=== PATIENT | male | born 1985 | race Caucasian/White ===

== ENCOUNTER → 2021-10-31 09:31 | Outpatient (BNVA) | payer OTHER, SELFPAY | PROVIDERS: Family Provider Registered Nurse; Visit Provider Nurse Practitioner Family | DX: Z20.822 Contact with and (suspected) exposure to COVID-19 (principal) | CPT/HCPCS: 87635 ==

== ENCOUNTER 2025-10-09 17:56 | Emergency (ER) | payer OTHER, SELFPAY ==
[2025-10-09 18:00] VITALS: BP 114/82; PULSE 134; RESP 18; TEMP 37.1; O2SAT 97; BMI 31.1
--- NOTE | 2025-10-09 18:04 | ECG_ITS ---
[employer] Test Date: 2025-10-09 Pat Name: Jackson Gillespie Department: Room: Gender: Male Facilities Director: : 1985 Requested By: Camron Egan Order Number: [id number] Manuel MD: ISAC ARENAS Measurements Intervals [place] Rate: 139 P: 35 KS: 145 QRS: -18 QRSD: 75 T: 46 QT: 288 QTc: 439 Interpretive Statements SINUS TACHYCARDIA POSSIBLE ANTERIOR MYOCARDIAL INFARCTION , PROBABLY OLD [30 ms Q WAVE IN V3/V4, OR R < 0.2 mV IN V4] ABNORMAL RHYTHM ECG INTERPRETATION BASED ON A DEFAULT AGE OF 40 YEARS No previous ECG available for comparison Electronically Signed On 10-09-2025 23:17:15 CARAMEL MAKER by ISAC ARENAS [id number]
--- OUTSIDE RECORDS SUMMARY | 2025-10-09 18:06 | XMS_ITS | Encounter Summary ---
Author Organization [facility] Address [address] [place] [address] Care Team Providers Care Lead Slot Technician Name Role Phone Fam Forrest DO Primary Care Provider [phone] Encounter Details Date Type Department Care Team (Late st Contact Info) Description 10/04/2025 External Device Data ST[place] ABSTRACTION Provider, Abstract NO ADDRESS ON FILE Social History Tobacco Use Types Packs/Day Years Used Date Smoking Tobacco: Never Smokeless Tobacco: Never Alcohol Use Standard Drinks/Week Comments No 0 (1 standard drink = 0.6 oz pur e alcohol) Feeling Safe Answer Date Recorded Are you in a relationship wi th someone who hurts you emotionally and/or physically? 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 Gender Identity Not on file Sexual Orientation Not on file documented as of this encounter Plan of Treatment Upcoming Encounters Date Type Department Care Team (Late st Contact Info) Description 03/10/2026 10:15 AM CDT Office Visit [facility] [address] [place] [address] Quinton Terry MD [address] [place] [address] documented as of this encounter Visit Diagnoses Not on filedocumented in this encounter Care Teams Lead Slot Technician Relationship Specialty Start Date End Date Fam Forrest DO [address] [place] [address] PCP - General Family Practice 10/30/23 documented as of this encounter
--- OUTSIDE RECORDS SUMMARY | 2025-10-09 18:06 | XMS_ITS | Encounter Summary ---
Author Organization [facility] Address [address] [place] [address] Care Team Providers Care Software Engineering Supervisor Name Role Phone Tali Bazzi DO Primary Care Provider [phone] Encounter Details Date Type Department Care Team (Latest Contact Info) Description 05/30/2005 Outpatient Historical [facility] Medicine [address] [phone] Jamaal Diaz, PIPE FITTER SUPERVISOR [address] [place], [place] [id number] MED EXAM NEC-ADMIN PURP (Primary Dx) Social History Tobacco Use Types Packs/Day Years Used Date Smoking Tobacco: Never Assessed Sex and Gender Information Value Date Recorded Sex Assigned at Not on file 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
--- OUTSIDE RECORDS SUMMARY | 2025-10-09 18:06 | XMS_ITS | Clinical Summary ---
Author Organization [facility] [address] [address] [address] Care Team Providers Care Double End Sewer Name Role Phone MichelleFam kendall Primary Care Provider [phone] Allergies No known active allergies Medications fluticasone propionate (FLONASE) 50 mcg/spray [place], Suspension nasal inhalerIndication s:Acute non-recurrent pansinusitis,Othe r non-recurrent acute nonsuppurative otitis media of left ear Administer 2 Sprays in each nostril daily. 16 Gram 0 019 Active Blood-Glucose MeterIndications: Type 2 diabetes mellitus without complication, without long-term current use of insulin ([facility]) Test blood sugars daily and prn 1 Each 1 022 Active blood sugar diagnostic StripIndications: Type 2 diabetes mellitus without complication, without long-term current use of insulin ([facility]) Test blood sugars daily and prn 100 Strip 5 022 Active lisinopriL (PRINIVIL) 10 mg tabletIndications :Type 2 diabetes mellitus without complication, without long-term current use of insulin ([facility]),Essenti al (primary) hypertension Take 1 Tablet (10 mg) by mouth daily. 90 Tablet 3 025 Active aspirin (ECOTRIN EC) 81 mg Tablet, Delayed Release (E.C.)Indications :Abnormal cardiovascular stress test Take 1 Tablet (81 mg) by mouth daily. 025 Active metoprolol succinate (TOPROL XL) 25 mg Extended Release 24 hour tablet Take 1 Tablet (25 mg) by mouth daily. 90 Tablet 3 025 Active Mounjaro 10 mg/0.5 mL Pen InjectorIndicatio ns:Type 2 diabetes mellitus without complication, without long-term current use of insulin ([facility]) INJECT 0.5 ML SUBCUTANEOUSLY EVERY SEVEN DAYS 2 mL 5 025 Active ticagrelor (BRILINTA) 90 mg Tablet TAKE ONE TABLET BY MOUTH BY MOUTH TWICE DAILY 180 Tablet 1 025 Active ticagrelor (BRILINTA) 90 mg Tablet Take 1 Tablet (90 mg) by mouth 2 times daily. 180 Tablet 1 025 2024 Discontinued Active Problems Problem Noted Date Diagnosed Date Mixed hyperlipidemia 03/04/2025 ASHD (arteriosclerotic heart disease) 03/04/2025 Chest pain 02/18/2025 Abnormal stress test 02/18/2025 Hypertension, essential 02/04/2025 Other forms of angina pectoris 02/04/2025 Uncontrolled type 2 diabetes mellitus with hyperglycemia, without long-term current use of insulin 12/16/2024 Elevated blood pressure read ing without diagnosis of hypertension 12/16/2024 Intermittent palpitations 12/16/2024 Chest pain in adult 12/16/2024 Dyspnea 12/16/2024 Benign hypertension 12/16/2024 Resolved Problems Problem Noted Date Diagnosed Date Resolved Date Diabetes mellitus type II, uncontrolled 11/22/2013 05/04/2014 Encounters Date Type Department Care Team Description 10/04/2025 External Device Data STL ABSTRACTION Provider, Abstract 09/22/2025 [facility] [address] [facility] [address] [place] [address] Quinton Terry MD 09/21/2025 Orders Only [address] [address] Fam Forrest, Type 2 diabetes mellitus without complication, without long-term current use of insulin ([facility]) 08/30/2025 External Device Data STL ABSTRACTION Provider, Abstract 08/30/2025 External Device Data STL ABSTRACTION Provider, Abstract 08/10/2025 Orders Only [address] [address] Fam Forrest, Type 2 diabetes mellitus without complication, without long-term current use of insulin 08/08/2025 Medication Prior Auth Encounter [facility] [address] [phone] Porsha Arshad FNP 08/03/2025 External Device Data STL ABSTRACTION Provider, Abstract 08/01/2025 Medication Prior Auth Encounter [facility] [address] [phone] Porsha Arshad FNP 07/22/2025 Refill [facility] [address] [phone] Porsha Arshad, RJ Type 2 diabetes mellitus without complication, without long-term current use of insulin ([facility]) 07/19/2025 External Device Data STL ABSTRACTION Provider, Abstract from Last 3 Months Immunizations Immunization Administration Dates Next Due (ADACEL/BOOSTRIX)(10 YR UP) TDAP VACCINE, 0.5ML, IM 07/29/2017 (M-M-R II/PRIORIX)(12 MO UP) MEASLES, MUMPS AND RUBELLA VIRUS VACCINE, 0.5 ML IM/SUBCUT 03/30/1992 (TDVAX)(7 YRS UP) TETANUS AN D DIPHTHERIA TOXOIDS, ADSORBED (2 LF OF TETANUS TOXOID AND 2 LF OF DIPHTHERIA TOXOID), 0.5ML (PF), IM 07/15/2002 Dt Dtp Dtap Vaccine 03/30/1992,10/13/1991 Hepatitis B Vaccine 07/24/1998 IPV/OPV 03/30/1992 Family History Medical History Relation Name Comments Hypertension Father Has also had so me kidney disease Diabetes Mother Relation Name Status Comments Father Mother Social History Tobacco Use Types Packs/Day Years Used Date Smoking Tobacco: Never Smokeless Tobacco: Never Tobacco Cessation:Counseling Given: Not Answered Alcohol Use Standard Drinks/Week Comments No 0 (1 standard drink = 0.6 oz pur e alcohol) Feeling Safe Answer Date Recorded Are you in a relationship wi th someone who hurts you emotionally and/or physically? 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 Gender Identity Not on file Sexual Orientation Not on file Last Filed Vital Signs Vital Sign Reading Time Taken Comments Blood Pressure 124/70 03/04/2025 7:44 AM CDT Pulse 88 03/04/2025 7:44 AM CDT Temperature 36.6 C (97.9 F) 02/24/2025 8:59 AM CDT Respiratory Rate 17 02/24/2025 4:45 PM CDT Oxygen Saturation 97% 02/24/2025 3:00 PM CDT Inhaled Oxygen Concentration - - Weight 115 kg (253 lb 8.5 oz) 02/24/2025 8:55 AM CDT Height 198.1 cm (6' 6 ) 03/04/2025 7:44 AM CDT Body Mass Index 29.3 02/24/2025 8:55 AM CDT Plan of Treatment Upcoming Encounters Date Type Department Care Team (Late st Contact Info) Description 03/10/2026 10:15 AM CDT Office Visit [facility] [address] [place] [address] Quinton Terry MD [address] [place] [address] Health Maintenance Due Date Last Done Comments HEPATITIS B VACCINES (2 of 3 - 3-dose series) 08/21/1998 07/24/1998, 07/24/1998 DIABETES ANNUAL RETINAL EXAM 2004 DIABETES MICROALBUMIN ANNUAL SCREEN 12/25/2023 12/24/2022, 01/02/2021, 11/30/2019 DIABETES ANNUAL FOOT EXAM 07/10/2024 07/10/2023 Preventative Visit- Commercial 10/13/2024 0 10/30/2023, 03/31/2023, 01/11/2022, Additional history exists LDL CHOLESTEROL ANNUAL 10/30/2024 , 03/31/2023, 09/26/2022, Additional history exists DIABETES: A1C (Auto Order) 03/18/202512/16, 08/12/2024, 10/30/2023, Additional history exists INFLUENZA VACCINE (#1) 2025 07/27/2018, 2017 DIABETES HBA1C Q 6 MONTHS 06/18/20252024, 08/12/2024, 10/30/2023, Additional history exists DTAP/TDAP/TD VACCINES (6 - T d or Tdap) 07/29/2027 07/29/2017, 07/15/2002, 03/30/1992, Additional history exists HPV VACCINES (No Doses Required) Completed Medical Devices Implanted Type Area Business Applications Analyst Device Identifier Shelf Expiration Date Model / Serial / Lot Stent Synergy Xd 3.0x48mm Evrlms Elut [id number] - [id number] Implanted:Qty: 1 on 02/24/2025 by Quinton Terry MD at [facility] Stent Left: Coronary RouterShare ANTONIO [id number] 04/05/2026 [id number] / / [id number] Procedures Procedure Name Priority Date/Time Associated Diagnosis Comments HEMOGLOBIN A1C Routine 12/16/2024 9:42 AM REFRIGERATOR CAR ICER Uncontrolled type 2 diabetes mellitus with hyperglycemia, without long-term current use of insulin ([facility]) LIPID PANEL Routine 10/30/2023 9:43 AM REFRIGERATOR CAR ICER Normal routine physical examination MICROALBUMIN/CREATI NINE RATIO, RANDOM UR Routine 12/24/2022 10:20 AM CDT Type 2 diabetes mellitus without complication, without long-term current use of insulin ([facility]) from Last 3 Months or Most Recently Relevant to Health Maintenance Results * (ABNORMAL) HEMOGLOBIN A1C (12/16/2024 9:42 AM REFRIGERATOR CAR ICER) HEMOGLOBIN A1C 9.4(H) <5.7 % of total Hgb [facility] Comment: For someone without known diabetes, a hemoglobin A1c value of 6.5% or greater indicates that they may have diabetes and this should be confirmed with a follow-up test. For someone with known diabetes, a value <7% indicates that their diabetes is well controlled and a value greater than or equal to 7% indicates suboptimal control. A1c targets should be individualized based on duration of diabetes, age, comorbid conditions, and other considerations. Currently, no consensus exists regarding use of hemoglobin A1c for diagnosis of diabetes for children. ESTIMATED AVERAGE GLUCOSE (MG/DL) 223 mg/dL [facility] ESTIMATED AVERAGE GLUCOSE (MMOL/L) 12.4 mmol/L [facility] Comment: Test Performed at: [facility] [id number] [place] [address] Lorie Juan MD Blood 12/16/2024 9:42 AM REFRIGERATOR CAR ICER 12/16/2024 9:43 AM REFRIGERATOR CAR ICER us Graciela ARIASP CHEMISTRY ORDERABLES Final Res ult [facility] [phone] [facility] [place] [address] * (ABNORMAL) LIPID PANEL (10/30/2023 9:43 AM REFRIGERATOR CAR ICER) CHOLESTEROL 164 <200 mg/dL [facility] HDL 44 > OR = 40 mg/dL [facility] TRIGLYCERIDE 64 <150 mg/dL [facility] LDL CALCULATED 105(H) mg/dL (calc) [facility] Comment: Reference range: <100 Desirable range <100 mg/dL for primary prevention; <70 mg/dL for patients with CHD or diabetic patients with > or = 2 CHD risk factors. LDL-C is now calculated using the Fortunato-Kanu calculation, which is a validated novel method providing better accuracy than the Friedewald equation in the estimation of LDL-C. Fortunato SS et al. RUFINO. 2013;310(19): 1661-5298 (http://education.Retail Derivatives Trader.MET Tech/faq/IHG648) CHOL/HDL RATIO 3.7 <5.0 (calc) [facility] TOTAL NON-HDL CHOL(LDL+VLDL) 120 <130 mg/dL (calc) [facility] Comment: For patients with diabetes plus 1 major ASCVD risk factor, treating to a non-HDL-C goal of <100 mg/dL (LDL-C of <70 mg/dL) is considered a therapeutic option. Test Performed at: [facility] [address] [place] [address] Lorie Juan MD Blood 10/30/2023 9:43 AM REFRIGERATOR CAR ICER 10/31/2023 6:52 AM REFRIGERATOR CAR ICER Porsha ARIASP CHEMISTRY ORDERABLES Final Re sult [facility] [phone] [place] [address] * MICROALBUMIN/CREATININE RATIO, RANDOM UR (12/24/2022 10:20 AM CDT) Creatinine, Urine 53 20 - 320 mg/dL [facility] MICROALBUMIN, URINE 1.4 See Note: mg/dL [facility] Comment: Reference Range: Reference Range Not established MICROALBUMIN/CREAT RATIO, UR 26 <30 mcg/mg creat [facility] Comment: The ADA defines abnormalities in albumin excretion as follows: Albuminuria Category Result (mcg/mg creatinine) Normal to Mildly increased <30 Moderately increased 30-299 Severely increased > OR = 300 The ADA recommends that at least two of three specimens collected within a 3-6 month period be abnormal before considering a patient to be within a diagnostic category. Test Performed at: [facility] [address] Lorie Juan MD Urine URINE SPECIMEN OBTAINED BY CLEAN CATCH PROCEDURE / Unknown 12/24/2022 10:20 AM CDT 12/25/2022 5:39 AM CDT Porsha DE LA ROSA URINE ORDERABLES Final Result [facility] [phone] [facility] [employer] [address] [place] [address] from Last 3 Months or Most Recently Relevant to Health Maintenance Insurance [facility] PPO Advance Directives For more information, please contact: [phone] * Full Code (Latest Code Status on File) Date Activated Date Inactivated Comments 02/24/2025 12:32 PM 02/24/2025 7:07 PM * Full Code Date Activated Date Inactivated Comments 02/24/2025 8:40 AM 02/24/2025 12:32 PM Care Teams Double End Sewer Relationship Specialty Start Date End Date Fam Forrest DO [address] [place] [address] PCP - General Family Practice 10/30/23
--- OUTSIDE RECORDS SUMMARY | 2025-10-09 18:06 | XMS_ITS | Encounter Summary ---
Author Organization [facility] Address [address] [place] [address] Care Team Providers Care Purler Name Role Phone Tali Bazzi DO Primary Care Provider [phone] Encounter Details Date Type Department Care Team (Latest Contact Info) Description 09/14/[address] 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
--- OUTSIDE RECORDS SUMMARY | 2025-10-09 18:06 | XMS_ITS | Encounter Summary ---
Author Organization [facility] Address [address] [place] [address] Care Team Providers Care Preparatory Technician Name Role Phone Tali Bazzi DO Primary Care Provider [phone]- [phone] Encounter Details Date Type Department Care Team (Latest Contact Info) Description 10/26/2002 Outpatient Historical [facility] Medicine [address] [phone] Brandin Loera MD [address] [phone] ACUTE URI NOS (Primary Dx) Social History Tobacco Use Types Packs/Day Years Used Date Smoking Tobacco: Never Assessed Sex and Gender Information Value Date Recorded Sex Assigned at Not on file Legal Sex Male 4: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
--- OUTSIDE RECORDS SUMMARY | 2025-10-09 18:06 | XMS_ITS | Encounter Summary ---
Author Organization [facility] Address [address] [place] [address] Care Team Providers Care Signals Intelligence Analysis Manager Name Role Phone Tali Bazzi DO Primary Care Provider [phone]- [phone] Encounter Details Date Type Department Care Team (Latest Contact Info) Description 08/31/1999 Outpatient Historical [address] [phone] Eva Rodriguez MD [address] [place] [address] Acute pharyngitis (Primary Dx) Social History Tobacco Use Types Packs/Day Years Used Date Smoking Tobacco: Never Assessed Sex and Gender Information Value Date Recorded Sex Assigned at Not on file Legal Sex Male 4:28 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
--- OUTSIDE RECORDS SUMMARY | 2025-10-09 18:06 | XMS_ITS | Encounter Summary ---
Author Organization [facility] Address [address] [place] [address] Care Team Providers Care Stone Layer Name Role Phone Tali Bazzi DO Primary Care Provider [phone] Encounter Details Date Type Department Care Team (Latest Contact Info) Description 05/25/2004 Outpatient Historical [facility] Medicine [address] [phone] Tasha Ahmadi MD [address] [place] [address] MED EXAM NEC-ADMIN PURP (Primary Dx) Social History Tobacco Use Types Packs/Day Years Used Date Smoking Tobacco: Never Assessed Sex and Gender Information Value Date Recorded Sex Assigned at Not on file Legal Sex Male 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
--- OUTSIDE RECORDS SUMMARY | 2025-10-09 18:06 | XMS_ITS | Encounter Summary ---
Author Organization [facility] Address [address] [place] [address] Care Team Providers Care Assistant Womens Volleyball Coach Name Role Phone Tali Bazzi DO Primary Care Provider [phone]- [phone] Encounter Details Date Type Department Care Team (Latest Contact Info) Description 11/14/2000 Outpatient Historical [facility] Medicine [address] [phone] Tasha Ahmadi MD [address] [place] [address] Influenza with other respiratory manifestations (Primary Dx) Social History Tobacco Use Types Packs/Day Years Used Date Smoking Tobacco: Never Assessed Sex and Gender Information Value Date Recorded Sex Assigned at Not on file Legal Sex Male 4:28 AM 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
--- OUTSIDE RECORDS SUMMARY | 2025-10-09 18:06 | XMS_ITS | Clinical Summary ---
Author Organization [facility] Address [address] [place] [address] Care Team Providers Care Vending Machine Operator Name Role Phone Tali Bazzi Elisha FERRERA Primary Care Provider [phone] Allergies No known active allergies Medications fluticasone propionate (FLONASE) 50 mcg/spray [place], Suspension nasal inhalerIndications :Acute non-recurrent pansinusitis,Other non-recurrent acute nonsuppurative otitis media of left ear Administer 2 Sprays in each nostril daily. 16 Gram 08/19/20 19 Active pseudoephedrine (SUDAFED) 30 mg tabletIndications: Acute non-recurrent pansinusitis Take 1 Tablet (30 mg) by mouth every 4 hours as needed for Congestion. [place] 30 Tablet 4 08/19/20 19 Active escitalopram oxalate (LEXAPRO) 10 mg tabletIndications: Generalized anxiety disorder TAKE 1 TABLET BY MOUTH DAILY. 90 Tablet 4 07/02/20 20 Active Blood-Glucose MeterIndications:T ype 2 diabetes mellitus without complication, without long-term current use of insulin ([facility]) Test blood sugars daily and prn 1 Each 01/03/20 21 Active blood sugar diagnostic (Blood Glucose Test) StripIndications:T ype 2 diabetes mellitus without complication, without long-term current use of insulin ([facility]) Test blood sugars daily and prn 100 Strip 01/03/20 21 Active exenatide microspheres (Bydureon BCise) 2 mg/0.85 mL Auto-InjectorIndic ations:Type 2 diabetes mellitus without complication, without long-term current use of insulin ([facility]) INJECT 1 PEN BY SUBCUTANEOUS INJECTION EVERY 7 DAYS FOR 7 DAYS. 3.4 mL 5 02/13/20 21 Active dapagliflozin (Farxiga) 10 mg TabletIndications: Type 2 diabetes mellitus without complication, without long-term current use of insulin ([facility]) Take 1 Tablet (10 mg) by mouth daily. 90 Tablet 3 03/23/20 21 Active Active Problems Problem Noted Date Diagnosed Date Diabetes mellitus type II, c ontrolled, with no complications 05/04/2014 Resolved Problems Problem Noted Date Diagnosed Date Resolved Date Diabetes mellitus type II, uncontrolled 11/22/2013 05/04/2014 Immunizations Immunization Administration Dates Next Due (ADACEL/BOOSTRIX)(10 [...] Types Packs/Day Years Used Date Smoking Tobacco: Former Cigars Smokeless Tobacco: Never Alcohol Use Standard Drinks/Week Comments No 0 (1 standard drink = 0.6 oz pur e alcohol) Sex and Gender Information Value Date Recorded Sex Assigned at Not on file 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 Gender Identity Not on file Sexual Orientation Not on file 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 Not on file Not on file Not on file Last Filed Vital Signs Vital Sign Reading Time Taken Comments Blood Pressure 124/80 01/02/2021 2:33 PM CDT Pulse 81 01/02/2021 2:33 PM CDT Temperature 36.3 C (97.4 F) 01/02/2021 2:33 PM CDT Respiratory Rate 18 11/30/2019 9:55 AM GRASS FARM LABORER Oxygen Saturation 96% 01/02/2021 2:33 PM CDT Inhaled Oxygen Concentration - - Weight 120.2 kg (265 lb) 01/02/2021 2:33 PM CDT Height 198.1 cm (6' 6 ) 01/02/2021 2:33 PM CDT Body Mass Index 30.62 01/02/2021 2:33 PM CDT Plan of Treatment Health Maintenance Due Date Last Done Comments HEPATITIS B VACCINES (2 of 3 - 3-dose series) 08/21/1998 07/24/1998 DIABETES ANNUAL FOOT EXAM 2004 DIABETES ANNUAL RETINAL EXAM 2004 DIABETES HBA1C Q 6 MONTHS 07/05/20212020, 11/30/2019, 02/17/2019, Additional history exists DIABETES MICROALBUMIN ANNUAL SCREEN 01/02/2022 01/02/2021, 11/30/2019 LDL CHOLESTEROL ANNUAL 01/02/2022 , 11/30/2019, 07/27/2018, Additional history exists Preventative Visit- Commercial 10/13/2024 0 10/30/2023, 03/31/2023, 01/11/2022, Additional history exists INFLUENZA VACCINE (#1) 2025 07/27/2018, 2017 DTAP/TDAP/TD VACCINES (5 - T d or Tdap) 07/29/2027 07/29/2017, 07/15/2002, 03/30/1992, Additional history exists HPV VACCINES (No Doses Required) Completed Procedures Procedure Name Priority Date/Time Associated Diagnosis Comments MICROALBUMIN/CREATIN INE RATIO, RANDOM UR Routine 01/02/2021 3:35 PM CDT Type 2 diabetes mellitus without complication, without long-term current use of insulin ([facility]) LIPID PANEL Routine 01/02/2021 3:35 PM CDT Type 2 diabetes mellitus without complication, without long-term current use of insulin ([facility]) HEMOGLOBIN A1C Routine 01/02/2021 3:35 PM CDT Type 2 diabetes mellitus without complication, without long-term current use of insulin ([facility]) from Last 3 Months or Most Recently Relevant to Health Maintenance Results * (ABNORMAL) MICROALBUMIN/CREATININE RATIO, RANDOM UR (01/02/2021 3:35 PM CDT) MICROALBUMIN, URINE 3.0 No Reference Range mg/dL 01/02/2021 9:[address] [facility] CREATININE, URINE 59.3 40.0 - 278.0 mg/dL 01/02/2021 9:[address] [facility] Comment:Reference Range vari es with fluid intake and diet. MICROALBUMIN/ CREAT RATIO, UR 50.6(H) <17.0 mg/g 01/02/2021 9:[address] [facility] Urine URINE SPECIMEN OBTAINED BY CLEAN CATCH PROCEDURE / Unknown Collection / Unknown 01/02/2021 3:35 PM CDT 01/02/2021 8:19 PM CDT [facility] - 01/02/2021 9:49 PM CDT Condition Microalbumin/Creat ratio Normal Males <17 Normal Females <25 Microalbuminuria Males 17-299 Microalbuminuria Females 25-299 Overt proteinuria >=300 Porsha Arshad HAND PRINTED CIRCUIT BOARD ASSEMBLER URINE ORDERABLES Final Result [facility] IA# [id number] [address] [place] [id number] * (ABNORMAL) HEMOGLOBIN A1C (01/02/2021 3:35 PM CDT) HEMOGLOBIN A1C 10.5(H) See Comment % 01/03/2021 11:[address] [facility] EST. AVG GLUCOSE, A1C 255 mg/dL 01/03/2021 11:[address] [facility] Blood Venipuncture / Unknown 01/02/2021 3:35 PM CDT 01/02/2021 8:21 PM CDT [facility] - 01/03/2021 11:09 AM CDT HGB A1C INTERPRETATION NORMAL: <5.7% PRE-DIABETES: 5.7 - 6.4% DIABETES: 6.5% OR GREATER Falsely low A1C measurements can occur when: 1. Anemia and/or hemolytic anemia is present. 2. Hemoglobin variants present. 3. Renal failure. 4. Transfusion of blood product in the last 120 days. We recommend ordering a fructosamine test([id number]) to more accurately assess glycemic status if any of the above conditions are present. Porsha Arshad HAND PRINTED CIRCUIT BOARD ASSEMBLER CHEMISTRY ORDERABLES Final Re sult [facility] CLIA# [id number] [address] [place] [address] * (ABNORMAL) LIPID PANEL (01/02/2021 3:35 PM CDT) CHOLESTEROL 194 <200 mg/dL 01/02/2021 9:[address] [facility] TRIGLYCERIDE 147 <150 mg/dL 01/02/2021 9:[address] [facility] HDL 40 40 - 59 mg/dL 01/02/2021 9:[address] [facility] LDL CALCULATED 125(H) <100 mg/dL 01/02/2021 9:[address] [facility] NON-HDL CHOLESTEROL 154(H) <130 mg/dL 01/02/2021 9:[address] [facility] Blood Venipuncture / Unknown 01/02/2021 3:35 PM CDT 01/02/2021 8:[address] [facility] - 01/02/2021 9:57 PM CDT TOTAL CHOLESTEROL mg/dL Desirable <200 Borderline high 200-239 High >=240 TRIGLYCERIDES mg/dL Normal <150 Borderline high 150-199 High 200-499 Very high >=500 HDL CHOLESTEROL mg/dL Low <40 Normal 40-59 Desirable >=60 NON HDL CHOLESTEROL mg/dL Optimal <130 Near Optimal 130-159 Borderline High 160-189 Very High >=190 CALCULATED LDL mg/dL LDL <70, OPTIMAL if have Atherosclerotic cardiovascular disease (ASCVD) or intermediate or higher (>7.5%) 10 year risk of ASCVD including most adults with diabetes. LDL <100, Optimal in adult patients with low (<7.5%) 10 year ASCVD risk LDL 100-160, Suboptimal LDL >160, High LDL >190, Very high ATPIII Guidelines Reference Ranges for Lipid Panels (NCEP/AMA) . us Porsha Arshad HAND PRINTED CIRCUIT BOARD ASSEMBLER CHEMISTRY ORDERABLES Final Re sult [facility] CLID# [id number] [address] [place] [address] from Last 3 Months or Most Recently Relevant to Health Maintenance Insurance [facility] Care Teams Vending Machine Operator Relationship Specialty Start Date End Date Tali Bazzi DO [address] [place] [id number] PCP - General Family Practice 11/03/13
--- NOTE | 2025-10-09 19:10 | ECG_ITS ---
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1985 Requested By: Cuca Arredondo Order Number: [id number] Reading MD: ISAC ARENAS Measurements Intervals [place] Rate: 125 P: 20 CO: 161 QRS: -7 QRSD: 75 T: 30 QT: 299 QTc: 432 Interpretive Statements SINUS TACHYCARDIA POSSIBLE ANTERIOR MYOCARDIAL INFARCTION , PROBABLY OLD [30 ms Q WAVE IN V3/V4, OR R < 0.2 mV IN V4] INFERIOR MYOCARDIAL INFARCTION , PROBABLY OLD [40+ ms Q WAVE AND/OR ST/T ABNORMALITY IN II/aVF] Compared to ECG 10/09/2025 18:04:09 No significant changes Electronically Signed On 10-09-2025 22:50:01 BED OPERATOR by ISAC ARENAS [email or web address]
[2025-10-09 19:17] VITALS: BP 136/86; PULSE 133; RESP 15; O2SAT 91
[2025-10-09 19:27] LABS: Hematocrit 53.2 % (37-53); Hemoglobin 18.50 g/dL (11.27-16.99); Mean Corpuscular HGB Conc 34.8 g/dL (30-55); Mean Corpuscular Hemoglobin 30.3 pg (27-33); Mean Corpuscular Volume 87.1 fl (82-101); Nucleated Red Blood Cells % 0 %; Platelet Count 267 10^3/cmm (157-399); Red Blood Count 6.11 10^6/uL (3.85-5.65); White Blood Count 16.27 10^3/uL (3.29-11.43)
[2025-10-09 19:46] LABS: Troponin(5th) Baseline 8 ng/L (0-15)
[2025-10-09 19:47] LABS: Lactic Sepsis W/Reflex 1.7 mmol/L (0.5-2.2)
[2025-10-09 20:01] LABS: Alanine Aminotransferase 34 U/L (0-41); Albumin Level 4.7 g/dL (3.5-5.2); Alkaline Phosphatase 81 U/L (40-130); Anion Gap 20.1 (5-19); Aspartate Amino Transferase 18 U/L (0-40); Blood Urea Nitrogen 17 mg/dL (6-20); Calcium 9.4 mg/dL (8.5-10.5); Carbon Dioxide 21 mmol/L (22-29); Chloride 101 mmol/L (98-107); Globulin 2.5 g/dL (1.3-4.6); Glucose 250 mg/dL (65-115); Lipase 31 U/L (13-60); Osmolality Calculated 296 mOsm/kg (285-295); Potassium 4.1 mmol/L (3.5-5.1); Sodium 138 mmol/L (136-145); Total Protein 7.2 g/dL (6.6-8.7)
[2025-10-09 20:06] VITALS: PULSE 128; RESP 18; O2SAT 98
[2025-10-09 20:08] LABS: Respiratory Syncytial Virus Ce NEGATIVE (Negative); SARS-CoV-2 PCR NEGATIVE (Negative)
--- NOTE | 2025-10-09 20:44 | ED_ITS ---
HPI - General Adult 2 General: Chief complaint: Nausea/Vomiting/Diarrhea Stated complaint: cp,n,v,d Time Seen by Provider: 10/09/25 19:09 History of Present Illness: Patient is a 40-year-old male with a history of RI status postcardiac stenting on aspirin, nitroglycerin and Brilinta presents with a chief complaint of nausea, vomiting, diarrhea and left-sided chest pain. Symptoms started today. Chest pain started at rest, radiates to the back. Patient states that he feels as though there is an exertional component to it. Patient also states that it feels somewhat similar to previous heart attack and this is why he became concerned and came to the emergency department. Patient has not had any aspirin or nitroglycerin at home. He has had a subjective fever but no runny nose, sore throat or cough. No significant abdominal pain, blood in stool, dysuria or hematuria. He denies hemoptysis, syncope, leg swelling. Patient has had exposure to family member w/similar sx (n/v/d) but presents due to concern about chest pain. Pain is mild now 2/10 in severity. Related Data Home Medications ?Medication ?Instructions ?Recorded ?Confirmed dapagliflozin propanediol 5 mg 5 mg PO DAILY 10/31/21 10/31/21 tablet (Farxiga) exenatide microspheres 2 mg/0.65 mg SUBCUT 10/31/21 mL subcutaneous pen injector Previous Rx's ?Medication ?Instructions ?Recorded ondansetron HCl 4 mg tablet 4 mg PO Q6H PRN nausea and 10/09/25 vomiting #20 tabs Allergies Allergy/AdvReac Type Severity Reaction Status Date / Time No Known Allergies Allergy Verified 10/09/25 18:09 Physical Exam 2 Narrative: EXAM NARRATIVE: Vital signs were reviewed. Patient is alert and oriented. Patient is breathing comfortably, no increased WOB or accessory muscle use. SpO2 is above 95% on RA. Patient has clear lungs b/l, no rhonchi, wheezing or crackles. No hypotension. +Tachycardia. Abdomen is soft, nondistended and nontender. Patient is moving all extremities, no deformity or gross injury. No lower extremity edema or asymmetry. Course 2 Vital Signs: Vital signs: Vital Signs Temperature 98.7 F 10/09/25 18:00 Pulse Rate 111 H 10/09/25 22:05 Respiratory Rate 16 12/28/25 22:05 Blood Pressure 98/65 10/09/25 22:05 Pulse Oximetry 94 10/09/25 22:05 Oxygen Delivery Me thod Room Air 10/09/25 18:00 MDM - General Adult Medical Decision Making 40yo M w/cc of CP, n/v/d, subjective fever at home today. He feels that CP is worsened w/exertion, somewhat similar to previous RI, a/w shortness of breath. Differential diagnosis includes, is limited to, ACS, myocarditis, pericarditis, SVT, COVID/flu, gastroenteritis, pancreatitis, cholecystitis, GERD, dehydration, other. On exam patient is tachycardic, was treated with 2 L of IV fluids. Patient was evaluate lab work including CBC, CMP, troponin, lipase, UA, CXR, COVID and flu screen. Patient was treated w/ASA and nitroglycerin. Patient has an elevated white blood cell count. He has elevated H/H which could be due to hemoconcentration given nausea, vomiting and diarrhea. He has mildly elevated anion gap but continues to have normal kidney function and does not have any actionable electrolyte abnormalities. He has a normal lactic acid. Patient has normal LFTs and lipase. Patient has a normal initial troponin and a negative delta troponin. He is negative for COVID and flu. On reassessment, patient states that chest pain has completely resolved, he does not have chest pain while ambulating around the emergency department. He is feeling much better after fluid administration, heart rate has significantly improved though he does remain mildly tachycardic. At this time, patient wishes to go home and I feel that is reasonable. I suspect that his symptoms may be due to nausea, vomiting and diarrhea. Chest discomfort could be secondary to sinus tachycardia. At this time, patient is stable for discharge. Patient was counseled on supportive care at home, given return precautions and discharged in stable condition with recommendation for outpatient follow-up with primary care nurse or doctor. Lab Data 10/09/25 19:21 10/09/25 19:21 Radiology Impressions Chest X-Ray 10/09/25 20:57 IMPRESSION: No acute findings. Laboratory Results WBC 16.27 10^3/uL (3.29-11.43) H 10/09/25 19:21 RBC 6.11 10^6/uL (3.85-5.65) H 10/09/25 19:21 Hgb 18.50 g/dL (11.27-16.99) H 10/09/25 19:21 Hct 53.2 % (37-53) H 10/09/25 19:21 MCV 87.1 fl (82-101) 10/09/25 19:21 MCH 30.3 pg (27-33) 10/09/25 19:21 MCHC 34.8 g/dL (30-55) 10/09/25 19:21 RDW 12.1 % (12.1-15.1) 10/09/25 19:21 Plt Count 267 10^3/cmm (157-399) 10/09/25 19:21 MPV 11.1 fL (7.4-10.4) H 10/09/25 19:21 Neut % (Auto) 92.4 % 10/09/25 19:21 Lymph % (Auto) 3.1 % 10/09/25 19:21 [place] % (Auto) 3.3 % 10/09/25 19:21 Eos % (Auto) 0.4 % 10/09/25 19:21 Baso % (Auto) 0.3 % 10/09/25 19:21 Neut # (Auto) 15.02 10^3/uL (1.8-7.7) H 10/09/25 19:21 Lymph # (Auto) 0.5 10^3/uL (0.8-4.8) L 10/09/25 19:21 [place] # (Auto) 0.5 10^3/uL (0.2-0.9) 10/09/25 19:21 Eos # (Auto) 0.1 10^3/uL (0.0-0.8) 10/09/25 19:21 Baso # (Auto) 0.1 10^3/uL (0.0-0.1) 10/09/25 19:21 Nucleated RBC % (auto) 0 % 10/09/25 19:21 Nucleated RBCs # 0.0 /100WBC 10/09/25 19:21 Sodium 138 mmol/L (136-145) 10/09/25 19:21 Potassium 4.1 mmol/L (3.5-5.1) 10/09/25 19:21 Chloride 101 mmol/L (98-107) 10/09/25 19:21 Carbon Dioxide 21 mmol/L (22-29) L 10/09/25 19:21 Anion Gap 20.1 (5-19) H 10/09/25 19:21 BUN 17 mg/dL (6-20) 10/09/25 19:21 Creatinine 0.9 mg/dL (0.7-1.2) 10/09/25 19:21 GFR Calculation 93.9 mL/min (90-130) 10/09/25 19:21 Glucose 250 mg/dL (65-115) H 10/09/25 19:21 Calculated Osmolality 296 mOsm/kg (285-295) H 10/09/25 19:21 Lactic Acid 1.7 mmol/L (0.5-2.2) 10/09/25 19:21 Calcium 9.4 mg/dL (8.5-10.5) 10/09/25 19:21 Total Bilirubin 1.2 mg/dL (0.15-1.2) 10/09/25 19:21 AST 18 U/L (0-40) 10/09/25 19:21 ALT 34 U/L (0-41) 10/09/25 19:21 Alkaline Phosphatase 81 U/L (40-130) 10/09/25 19:21 Troponin T Baseline 8 ng/L (0-15) 10/09/25 19:21 Troponin T 60 Minute 8.73 ng/L (0-15) 10/09/25 20:13 Delta Troponin T 0.73 ABS# (0-10) 10/09/25 20:13 Total Protein 7.2 g/dL (6.6-8.7) 10/09/25 19:21 Albumin 4.7 g/dL (3.5-5.2) 10/09/25 19:21 Globulin 2.5 g/dL (1.3-4.6) 10/09/25 19:21 Lipase 31 U/L (13-60) 10/09/25 19:21 Urine Color [place] (Yellow) A 10/09/25 21:25 Urine Appearance Clear (CLEAR) 10/09/25 21:25 Urine pH 5.5 (5-7) 10/09/25 21:25 Ur Specific [place] 1.030 (1.005-1.030) 10/09/25 21: Urine Protein Trace (Negative) A 10/09/25: Urine Glucose (UA) 3+ (Normal) H 10/09/25 21: Urine Ketones 2+ (Negative) H 10/09/25 21: Urine Blood Negative (Negative) 10/09/25 21: Urine Nitrate Negative (Negative) 10/09/25 21: Urine Bilirubin Negative (Negative) 10/09/25 21: Urine Urobilinogen 1.0 mg/dL (Negative) 10/09/25 21: Ur Leukocyte Esterase Negative (Negative) 10/09/25 21: Urine RBC 0-2 /hpf (0-2) 10/09/25 21: Urine WBC 0-5 /hpf (0-5) 10/09/25 21: Ur Squamous Epith Cells 0-5 /hpf (0-5) 10/09/25 21: Amorphous Sediment Not Reportable 10/09/25 21: Urine Bacteria None seen /hpf (NONE) 10/09/25 21: Hyaline Casts 1.21 /lpf 10/09/25 21:25 Influenza A (PCR) Negative (Negative) 10/09/25 19:21 Influenza Type B (PCR) Negative (Negative) 10/09/25 19:21 RSV (PCR) Negative (Negative) 10/09/25 19:21 SARS-CoV-2 (PCR) Negative (Negative) 10/09/25 19:21 All radiology interpretation(s) finalized by discharge EKG Data EKG 1: Interpretation: Sinus tachycardia with a heart rate of 125, possible LAD< normal intervals, no STEMI. +Q waves in V1-V4 and III/avF. No previous EKG available. Computer generated interpretation: Chest X-Ray 10/09/25 20:57 IMPRESSION: No acute findings. EKG 2: Interpretation: Sinus tachycardia with a heart rate of 116, left axis deviation, normal intervals, no STEMI, Q waves again demonstrated in V1-V3 and III, aVF, no signfiicant/ischemic change. Computer generated interpretation: Chest X-Ray 10/09/25 20:57 IMPRESSION: No acute findings. Discharge Plan Discharge Patient Disposition: Home Clinical Impression: Gastroenteritis, Chest pain, non-cardiac, Sinus tachycardia Condition: Stable Prescriptions: New ondansetron HCl 4 mg tablet 4 mg PO Q6H PRN (Reason: nausea and vomiting) Qty: 20 0RF No Action Farxiga 5 mg tablet 5 mg PO DAILY exenatide microspheres 2 mg/0.65 mL pen injector SUBCUT Discharge Orders: Discharge ED (Routine); Ordered 10/09/25 Ordered By: Cuca Arredondo Referrals: Porsha Arshad FNP [Primary Care Provider, Nurse Practitioner] Patient Instructions: Opioid Safety, Pain Management, Patient Portal & Janina Instructions, Gastroenteritis (DC), Chest Pain (DC) Activity Restrictions/Additional Instructions: Please continue to monitor your condition closely at home. Take Ibuprofen 400mg and Tylenol 500-1000mg every six hours for pain and inflammation. Take Zofran for nausea and vomiting. If your condition worsens or additional concerns arise, please return promptly to the emergency department for reassessment. Specifically, if your chest pain returns, gets worse please return immediately. Follow up with your primary care doctor in one week. I recommend you follow up with your boil off machine operator cloth as soon as you can. Print Language: Hungarian Coding Level of Care Code ED Engineering Officer for Caio Reyes
--- NOTE | 2025-10-09 20:53 | ECG_ITS ---
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1985 Requested By: Cuca Arredondo Order Number: [id number] Reading MD: ISAC ARENAS Measurements Intervals [place] Rate: 116 P: 21 SC: 174 QRS: -11 QRSD: 80 T: 12 QT: 311 QTc: 433 Interpretive Statements SINUS TACHYCARDIA POSSIBLE ANTERIOR MYOCARDIAL INFARCTION , OF INDETERMINATE AGE [30 ms Q WAVE IN V3/V4, OR R < 0.2 mV IN V4] INFERIOR MYOCARDIAL INFARCTION , PROBABLY OLD [40+ ms Q WAVE AND/OR ST/T ABNORMALITY IN II/aVF] Compared to ECG 10/09/2025 19:34:42 No significant changes Electronically Signed On 10-09-2025 23:16:53 EXTRACTOR OPERATOR SOLVENT PROCESS by ISAC ARENAS [email or web address]
--- NOTE | 2025-10-09 20:57 | XRR_ITS ---
PROCEDURE INFORMATION: Exam: XR Chest Exam date and time: 10/09/2025 8:59 PM Age: 40 years old Clinical indication: Chest pressure; Prior surgery; Surgery date: 6+ months; Surgery type: Coronary stents; C/O chest pain TECHNIQUE: Imaging protocol: Radiologic exam of the chest. Views: 2 views. COMPARISON: No relevant prior studies available. FINDINGS: Lungs: Unremarkable. No consolidation. Pleural spaces: Unremarkable. No pleural effusion. No pneumothorax. Heart/Mediastinum: Unremarkable. No cardiomegaly. Bones/joints: Unremarkable. XR/XR chest 2V* [id number] IMPRESSION: No acute findings.
[2025-10-09 21:18] VITALS: BP 117/69; PULSE 116; RESP 20; O2SAT 95
[2025-10-09 21:28] LABS: Glucose Urine UA 3+ (Normal); Nitrate Urine Negative (Negative); Specific Gravity, Urine 1.030 (1.005-1.030)
[2025-10-09 21:32] LABS: Add Urine Microscopic? YES
[2025-10-09 22:05] VITALS: BP 98/65; PULSE 111; RESP 16; O2SAT 94
[2025-10-09 23:01] VITALS: BP 112/64; PULSE 110; RESP 19; O2SAT 96
== END 2025-10-09 23:05 | disposition home or self-care (01) ==
PROVIDERS: Emergency Provider Emergency Medicine; PCP Registered Nurse
DX: K52.9 Noninfective gastroenteritis and colitis, unspecified (principal); R07.89 Other chest pain; R00.0 Tachycardia, unspecified; Z11.52 Encounter for screening for COVID-19
CPT/HCPCS: 36415; 71046; 80053; 81001; 83605; 83690; 84484; 85025; 87637; 93005; 96360; 96361; 99285; J7030; J9999